=== PATIENT | female | born 1940 | race Caucasian/White ===

== ENCOUNTER 2017-06-27 09:17 | Day surgery (SDC) | payer MEDICARE, OTHER ==
[~2017-06-27] VITALS: Ht 152.4 cm; Wt 88.7 kg
[~2017-06-27 09:17] MED LIST: 00186-0372-20 IH; ASPIRIN 32325 MG/TAB PO; ASPIRIN E.C. 8181 MG PO; COREG 6.256.25 MG/TA PO; HUMALOG100 U/ML SC; IMDUR 30MG30 MG/TAB PO; KLOR-CON 1010 MEQ PO; LANTUS100 U/ML SC; LASIX 40MG TABL40 MG PO; OSCAL 500 TAB500 MG PO; PLAVIX 75MG TAB75 MG PO; PRAVACHOL 40MG40 MG PO; PRINIVIL40 MG PO; PROVENTIL0.09 MG/A1 IH
[2017-06-27] MEDS ORDERED: FERRO-TIME325 MG PO (09:42)
[2017-06-27] MEDS ORDERED: LIPITOR 80MG80 MG PO (09:42)
[2017-06-27] MEDS ORDERED: RT SPIRIVA18 MCG IH ×2 (09:43)
[2017-06-27] MEDS ORDERED: ALDACTONE50 MG PO (09:43)
[2017-06-27] MEDS ORDERED: MIRALAX PA17 GM/Dose PO (09:44)
[2017-06-27] MEDS ORDERED: NOVOLOG FLEX100 U/ML SQ (09:44)
[2017-06-27] MEDS ORDERED: ZAROXOLYN 2.52.5 MG PO (09:44)
[2017-06-27] MEDS ORDERED: DALIRESP500 MCG PO (09:45)
[2017-06-27] MEDS ORDERED: NEURONTIN100 MG/CAP PO (09:45)
[2017-06-27 09:46] VITALS: BP 124/66; PULSE 86; TEMP 99
[2017-06-27 11:40] VITALS: BP 137/60; PULSE 78; TEMP 98.9
[2017-06-27 11:55] VITALS: BP 141/63; PULSE 81
[2017-06-27 12:10] VITALS: BP 136/58; PULSE 72
[2017-06-27 12:23] VITALS: BP 131/51; PULSE 73
== END 2017-06-27 12:40 | disposition home or self-care (01) ==
LOC: SDCO 09:17
DX: K62.1 Rectal polyp (principal); K63.89 Other specified diseases of intestine; K57.30 Diverticulosis of large intestine without perforation or abscess without bleeding; I10 Essential (primary) hypertension; J44.9 Chronic obstructive pulmonary disease, unspecified; E11.9 Type 2 diabetes mellitus without complications; E78.00 Pure hypercholesterolemia, unspecified; R03.0 Elevated blood-pressure reading, without diagnosis of hypertension; K92.2 Gastrointestinal hemorrhage, unspecified; Z79.82 Long term (current) use of aspirin; Z79.4 Long term (current) use of insulin; Z90.710 Acquired absence of both cervix and uterus; Z95.1 Presence of aortocoronary bypass graft; Z87.891 Personal history of nicotine dependence
CPT/HCPCS: OP; J2704; J3010; J7030

== ENCOUNTER 2017-07-25 08:35 | Inpatient (IN) | payer MEDICARE, OTHER ==
[~2017-07-25] VITALS: Ht 152.4 cm; Wt 88.3 kg
[~2017-07-25 08:35] MED LIST changes: +ALDACTONE50 MG PO; +DALIRESP500 MCG PO; +FERRO-TIME325 MG PO; +LIPITOR 80MG80 MG PO; +MIRALAX PA17 GM/Dose PO; +NEURONTIN100 MG/CAP PO; +NOVOLOG FLEX100 U/ML SQ; +RT SPIRIVA18 MCG IH; +ZAROXOLYN 2.52.5 MG PO
[2017-07-30] VITALS (120 sets, daily range): BP systolic 124–160; BP diastolic 54–74; PULSE 65–89; TEMP 97.1–98.3; O2SAT 92–100
[2017-07-30 11:36] LABS: BASO % 0.3 % (0.0-2.0); EOS # 0.1 (0.0-0.7); GRAN # 6.1 (1.4-6.5); HEMATOCRIT 41.6 % (37.0-47.0); HEMOGLOBIN 14.3 g/dl (12.5-16.0); LYMPH # 2.3 (1.2-3.4); MEAN CELL VOLUME 91 fl (80.0-100.0); MEAN CORPUSCULAR HEMOGLOBIN 31 pg (27.0-31.0); MEAN CORPUSCULAR HGB CONC 34 g/dl (33.0-37.0); MEAN PLATELET VOLUME 10.5 fl (7.4-10.4); MONO # 0.5 (0.1-0.6); MONO % 5.3 % (1.7-9.3); PLATELET COUNT 242 K/mm3 (130-400); RED BLOOD COUNT 4.57 M/mm3 (4.10-5.30); REDCELL DISTRIBUTION WIDTH-CV 14.2 % (11.5-14.5)
[2017-07-30 11:37] LABS: ARTERIAL BLD GAS O2 SATURATION 96.2 % (92-100); ARTERIAL BLD GAS TCO2 CT 27.8; ARTERIAL BLOOD GAS BASE EXCESS 2.6 (-2-2); ARTERIAL BLOOD GAS HCO3 26.6 meq/L (22-26); ARTERIAL BLOOD GAS PCO2 38.9 mmHg (35-45); ARTERIAL BLOOD GAS PO2 86.4 mmHg (80-100); ARTERIAL BLOOD GAS pH 7.45 (7.35-7.45)
[2017-07-30 11:47] LABS: ALBUMIN 4.2 gm/dL (3.5-5.0); BILIRUBIN,TOTAL 0.7 mg/dL (0.0-1.0); CALCIUM 10.2 mg/dL (8.4-10.2); CREATININE, serum 0.91 mg/dL (0.52-1.25); POTASSIUM 3.6 mmol/L (3.4-5.0)
[2017-07-30] MEDS ORDERED: ASPIRIN 81M81 MG/TA2 PO (11:57)
[2017-07-31] VITALS (9 sets, daily range): BP systolic 105–122; BP diastolic 33–87; PULSE 71–84; TEMP 97.8–99.5; O2SAT 98
[2017-07-31 06:48] LABS: BASO % 0.2 % (0.0-2.0); EOS % 0.2 % (0-4.0); GRAN # 6.5 (1.4-6.5); GRAN % 77.7 % (42.2-75.2); LYMPH # 1.2 (1.2-3.4); LYMPH % 14.7 % (20.0-51.0); MEAN CELL VOLUME 95 fl (80.0-100.0); MEAN CORPUSCULAR HGB CONC 33 g/dl (33.0-37.0); MEAN PLATELET VOLUME 10.1 fl (7.4-10.4); MONO # 0.6 (0.1-0.6); PLATELET COUNT 168 K/mm3 (130-400); RED BLOOD COUNT 3.66 M/mm3 (4.10-5.30); REDCELL DISTRIBUTION WIDTH-CV 14.4 % (11.5-14.5)
[2017-07-31 07:00] LABS: HEMATOCRIT 34.8 % (37.0-47.0); HEMOGLOBIN 11.4 g/dl (12.5-16.0); MEAN CORPUSCULAR HEMOGLOBIN 31 pg (27.0-31.0)
[2017-07-31 07:04] LABS: CALCIUM 8.8 mg/dL (8.4-10.2); CREATININE, serum 1.3 mg/dL (0.52-1.25); MAGNESIUM 1.4 mg/dL (1.6-2.3); PHOSPHOROUS 4.2 mg/dL (2.5-4.5); POTASSIUM 3.1 mmol/L (3.4-5.0)
[2017-08-01 00:03] VITALS: BP 126/50; PULSE 78; TEMP 98.5
[2017-08-01 03:50] VITALS: BP 121/37; PULSE 77; TEMP 98.1
[2017-08-01 06:55] LABS: HEMOGLOBIN 10.7 g/dl (12.5-16.0)
[2017-08-01 07:04] LABS: HEMATOCRIT 32.5 % (37.0-47.0)
[2017-08-01 07:13] LABS: CALCIUM 8.8 mg/dL (8.4-10.2); CREATININE, serum 1.12 mg/dL (0.52-1.25); MAGNESIUM 1.9 mg/dL (1.6-2.3); POTASSIUM 3.2 mmol/L (3.4-5.0)
[2017-08-01 07:42] VITALS: BP 123/44; PULSE 78; TEMP 97.7
[2017-08-01 11:22] VITALS: BP 117/39; PULSE 83; TEMP 98.7
[2017-08-01 16:02] VITALS: BP 126/38; PULSE 84; TEMP 98.2
[2017-08-01 19:44] VITALS: BP 120/56; PULSE 80; TEMP 98.4
[2017-08-02 00:36] VITALS: BP 141/60; PULSE 83; TEMP 98.4
[2017-08-02 05:19] VITALS: BP 130/58; PULSE 80; TEMP 98.1
[2017-08-02 06:49] LABS: BASO % 0.3 % (0.0-2.0); EOS # 0.2 (0.0-0.7); EOS % 1.7 % (0-4.0); GRAN # 7.5 (1.4-6.5); GRAN % 67.8 % (42.2-75.2); HEMOGLOBIN 11.1 g/dl (12.5-16.0); LYMPH # 2.6 (1.2-3.4); LYMPH % 23.3 % (20.0-51.0); MEAN CELL VOLUME 96 fl (80.0-100.0); MEAN CORPUSCULAR HEMOGLOBIN 31 pg (27.0-31.0); MEAN CORPUSCULAR HGB CONC 33 g/dl (33.0-37.0); MEAN PLATELET VOLUME 10.6 fl (7.4-10.4); MONO # 0.7 (0.1-0.6); MONO % 6.4 % (1.7-9.3); PLATELET COUNT 182 K/mm3 (130-400); RED BLOOD COUNT 3.55 M/mm3 (4.10-5.30); REDCELL DISTRIBUTION WIDTH-CV 14.6 % (11.5-14.5)
[2017-08-02 06:58] LABS: HEMATOCRIT 33.9 % (37.0-47.0)
[2017-08-02 07:01] LABS: CREATININE, serum 0.88 mg/dL (0.52-1.25); POTASSIUM 3.5 mmol/L (3.4-5.0)
[2017-08-02 08:39] VITALS: BP 140/60; PULSE 87; TEMP 97.4
== END 2017-08-02 13:00 | disposition home or self-care (01) | DRG 330 ==
LOC: INPTSU 07-30 10:54 → SURG 07-30 13:00 → ICU 07-30 18:17 → SURG 07-31 00:23
PROVIDERS: Family Medicine; Nurse Anesthetist, Certified Registered; Physician Assistant; Surgery
PROC: 0DNB4ZZ Release Ileum, Percutaneous Endoscopic Approach (ICD-10-PCS; 2017-07-30)
PROC: 0DNU4ZZ Release Omentum, Percutaneous Endoscopic Approach (ICD-10-PCS; 2017-07-30)
PROC: 8E0W4CZ Robotic Assisted Procedure of Trunk Region, Percutaneous Endoscopic Approach (ICD-10-PCS; 2017-07-30)
PROC: 0DTF4ZZ Resection of Right Large Intestine, Percutaneous Endoscopic Approach (ICD-10-PCS; principal; 2017-07-30 13:00)
DX: D12.0 Benign neoplasm of cecum (principal); N17.9 Acute kidney failure, unspecified; I50.32 Chronic diastolic (congestive) heart failure; K66.0 Peritoneal adhesions (postprocedural) (postinfection); I11.0 Hypertensive heart disease with heart failure; I25.10 Atherosclerotic heart disease of native coronary artery without angina pectoris; J43.1 Panlobular emphysema; E11.42 Type 2 diabetes mellitus with diabetic polyneuropathy; Z79.4 Long term (current) use of insulin; Z95.1 Presence of aortocoronary bypass graft; Z87.891 Personal history of nicotine dependence; E87.6 Hypokalemia
CPT/HCPCS: 99222; 99231-AI; A4314; A9284; J0330; J0690; J1265; J1650; J1815; J1940; J2250; J2270; J2405; J3010; J3475; J7030; J7040; J7120